=== PATIENT | male | born 1960 | race Caucasian/White ===

== ENCOUNTER 2016-06-22 07:33 | Day surgery (SDC) | payer OTHER ==
[~2016-06-22] VITALS: Ht 170.2 cm; Wt 139.2 kg
[2016-06-22 08:20] VITALS: Ht 170.2 cm; Wt 139.2 kg
[2016-06-22] MEDS ORDERED: BENAZEPRIL (08:28)
[2016-06-22] MEDS ORDERED: OMEPRAZOLE (08:28)
[2016-06-22] MEDS ORDERED: ASPIRIN (08:28)
[2016-06-22] MEDS ORDERED: SIMVASTATIN (08:28)
[2016-06-22] MEDS ORDERED: MAPAP (08:28)
[2016-06-22] MEDS ORDERED: TRAMADOL (08:28)
[2016-06-22] MEDS ORDERED: METFORMIN (08:28)
[2016-06-22] MEDS ORDERED: NAPROXEN (08:28)
[2016-06-22] MEDS ORDERED: HYDROCHLOROTHIAZIDE (08:28)
[2016-06-22] MEDS ORDERED: AMLODIPINE (08:28)
[2016-06-22] MEDS ORDERED: PROPOFOL 40 ML ONE (08:59)
[2016-06-22] MEDS ORDERED: MIDAZOLAM 1 MG/ML 2 ML INJ ONE ×2 (08:59)
[2016-06-22] MEDS ORDERED: FENTAnyl 50 MCG/ML VIAL ONE (08:59)
[2016-06-22 09:12] VITALS: BP 141/77; PULSE 94; RESP 18
[2016-06-22 10:15] VITALS: BP 131/71; PULSE 78; RESP 24
--- NOTE | 2016-06-22 11:29 | GILP ---
DATE OF PROCEDURE: NAME OF PROCEDURE: Colonoscopy and biopsy and polypectomy. PREOPERATIVE DIAGNOSIS: Patient presenting with history of occult gastrointestinal bleeding, rule o ut colorectal neoplasm, arteriovenous malformation, etc. POSTOPERATIVE DIAGNOSES: Three polyps were noted at about 15 cm from the anus. See the description below. DESCRIPTION OF PROCEDURE: After informed written consent was obtained, the patient was asked to lie on the left lateral side. Intravenous anesthesia was given by anesthesiologist, Dr. Mederos. When the patient became somnolent, Olympus video colonoscope was introduced into the rectum. At about 15 cm from the anus, there is evidence of 3 polyps noted. One is about 5 mm in diameter on a small st alk. Polypectomy was performed when the scope was withdrawn, and polyp was sent for histopathology. Two small polyps were noted close to the other polyp. Those were 2 mm in diameter. Both of them were removed with cold biopsy forceps. Scope at this time was advanced all the way to the cecum. E ntire rest of the colon appeared normal with no mucosal abnormality or any other abnormality. Scope at this time was withdrawn. On the way out, above findings were confirmed, and the procedure was t erminated. PLAN: Recommend wait for the pathology report. Dictated By: IRAIDA JARQUIN/JEREMY Conf#: [id number] DID#: [id number] CC: [facility];*EndCC*
--- NOTE | 2016-06-22 11:38 | GILP ---
DATE OF PROCEDURE: PROCEDURE: Esophagogastroduodenoscopy. PREOPERATIVE DIAGNOSIS: Patient presenting with a history of guaiac-positive stools, rule out pepti c ulcer disease, gastritis. POSTOPERATIVE DIAGNOSIS: Multiple erosions noted in the fundus of the stomach, could be medication induced; patient is on aspirin at this time and also is on naproxen. Minimal reflux esophagitis. DESCRIPTION OF PROCEDURE: After the informed written consent was obtained, patient was asked to lay on the left lateral side. Intravenous anesthesia was given by anesthesiologist, Dr. Mederos. When the patient became somnolent, Olympus video upper endoscope was introduced into the oropharynx, then into the esophagus. Esophagus showed minimal reflux esophagitis. The scope at this time was advan tia into the stomach. Multiple linear erosions were noted in the fundus of the stomach, antrum and the mid body appeared normal. Scope at this time was advanced into the duodenum. Duodenum appeared normal up to the end of the 3rd part of the duodenum. Scope at this time was withdrawn and on the way out, no additional abnormalities detected, and biopsies were done from the antrum and the lesser curvature and the fundus to rule out H. pylori infection. At this time, procedure was terminated. PLAN: Recommend continue omeprazole. Recommend discontinue aspirin and hydrochlorothiazide for 2 m onths. Dictated By: IRAIDA JARQUIN/JEREMY Conf#: [id number] DID#: [id number] CC: [facility];*EndCC*
== END 2016-06-22 10:22 | disposition home or self-care (01) ==
LOC: GIL 07:33
PROVIDERS: ATTEND Internal Medicine Gastroenterology
DX: K92.1 Melena (principal); K21.0 Gastro-esophageal reflux disease with esophagitis; K63.5 Polyp of colon; I10 Essential (primary) hypertension; E11.9 Type 2 diabetes mellitus without complications; E78.5 Hyperlipidemia, unspecified; E66.01 Morbid (severe) obesity due to excess calories; Z68.42 Body mass index [BMI] 45.0-49.9, adult
CPT/HCPCS: 43239; 45380; 82962; 88305; 88312; J2250; J3010